=== PATIENT | male | born 1950 | race Caucasian/White ===

== ENCOUNTER → 2017-07-31 | Outpatient (REF) ==
[~2017-07-31] MED LIST: NORCO 325 MG-51 TAB PO; PRINIVIL10 MG PO; TENORETIC 50 501 TAB PO; ZYLOPRIM 100MG100 MG PO
== END ==
LOC: ZLAB.WCH 15:06
DX: Z01.89 Encounter for other specified special examinations (principal)

== ENCOUNTER → 2018-04-25 | Outpatient (CLI) | payer MEDICARE, OTHER ==
[~2018-04-25] MED LIST changes: +ASPIRIN E.C. 8181 MG PO; +BETAPACE 80MG80 MG PO; +ELIQUIS 5MG PO; +EYE DROP TEARS15 ML OP; +NORVASC 10MG10 MG PO; +ZESTRIL40 MG PO
== END ==
LOC: COL.PUL 10:50
DX: I48.91 Unspecified atrial fibrillation (principal); Z87.891 Personal history of nicotine dependence

== ENCOUNTER → 2018-05-02 | Outpatient (REF) | LOC: ZLAB.WCH 18:09 | DX: Z01.89 Encounter for other specified special examinations (principal) ==

== ENCOUNTER → 2018-07-07 | Outpatient (CLI) | payer MEDICARE, OTHER ==
[~2018-07-07] VITALS: Ht 180.3 cm; Wt 90.0 kg
[~2018-07-07] MED LIST changes: +MASON NATURAL1200 MG PO
[2018-07-07 10:32] VITALS: BP 139/90; PULSE 58
[2018-07-07 12:07] VITALS: BP 119/71; PULSE 74
[2018-07-07 12:08] VITALS: BP 120/70; PULSE 81
[2018-07-07 12:09] VITALS: BP 124/81; PULSE 80
== END ==
LOC: COL.CARD 10:17
DX: R06.02 Shortness of breath (principal); I48.3 Typical atrial flutter; I50.32 Chronic diastolic (congestive) heart failure; G45.2 Multiple and bilateral precerebral artery syndromes
CPT/HCPCS: A9502; J2785

== ENCOUNTER 2020-02-28 14:58 | Emergency (ER) | payer MEDICARE, OTHER ==
[~2020-02-28] VITALS: Ht 177.8 cm; Wt 79.5 kg
[2020-02-28 15:05] VITALS: TEMP 98.1
[2020-02-28] MEDS ORDERED: CEPHALEXIN500 M1 PO (16:32)
[2020-02-28 16:50] VITALS: BP 165/73; PULSE 76
== END 2020-02-28 16:46 | disposition home or self-care (01) ==
LOC: COL.ER 14:58
DX: S02.2XXA Fracture of nasal bones, initial encounter for closed fracture (principal); S01.111A Laceration without foreign body of right eyelid and periocular area, initial encounter; I10 Essential (primary) hypertension; I48.91 Unspecified atrial fibrillation; Z79.01 Long term (current) use of anticoagulants; W10.9XXA Fall (on) (from) unspecified stairs and steps, initial encounter; Y92.009 Unspecified place in unspecified non-institutional (private) residence as the place of occurrence of the external cause

== ENCOUNTER 2020-09-14 02:52 | Emergency (ER) | payer MEDICARE, OTHER ==
[~2020-09-14] VITALS: Ht 177.8 cm; Wt 79.5 kg
[~2020-09-14 02:52] MED LIST changes: +CEPHALEXIN500 M1 PO
[2020-09-14 03:16] LABS: BASO # 0.1 (0.0-0.2); BASO % 0.8 % (0.0-2.0); EOS # 0.2 (0.0-0.7); EOS % 2.8 % (0-4.0); GRAN % 52.6 % (42.2-75.2); HEMOGLOBIN 10.5 g/dl (13.5-18.0); LYMPH # 2.6 (1.2-3.4); LYMPH % 34.1 % (20.0-51.0); MEAN CELL VOLUME 98 fl (80.0-100.0); MEAN CORPUSCULAR HEMOGLOBIN 34 pg (27.0-31.0); MEAN CORPUSCULAR HGB CONC 34 g/dl (33.0-37.0); MONO # 0.7 (0.1-0.6); MONO % 9.3 % (1.7-9.3); PLATELET COUNT 164 K/mm3 (130-400); RED BLOOD COUNT 3.13 M/mm3 (4.20-5.60); REDCELL DISTRIBUTION WIDTH-CV 14.4 % (11.5-14.5)
[2020-09-14 03:17] LABS: HEMATOCRIT 30.7 % (42.0-52.0)
[2020-09-14 03:47] LABS: ALANINE AMINOTRANSFERASE 29 U/L (4-49); ALBUMIN 4.1 gm/dL (3.5-5.0); ALKALINE PHOSPHATASE 87 U/L (50-136); ANION GAP 11 mmol/L (7-16); AST,SGOT 37 U/L (15-37); BILIRUBIN,TOTAL 1.1 mg/dL (0.0-1.0); BLOOD UREA NITROGEN 22 mg/dL (9-20); CARBON DIOXIDE 25 mmol/L (22-30); CHLORIDE 99 mmol/L (98-107); CREATININE, serum 1.04 (0.66-1.25); GLUCOSE 119 mg/dL (74-106); POTASSIUM 3.9 mmol/L (3.4-5.0); SODIUM 135 mmol/L (137-145); TOTAL PROTEIN 6.6 gm/dL (6.4-8.2)
[2020-09-14 04:01] LABS: TROPONIN-I 3 HR POST INITIAL < 0.012 ng/mL (0.000-0.034)
[2020-09-14 07:42] LABS: COLLECTION METHOD CLEAN CATCH
[2020-09-14 07:52] LABS: PH 6 (5-8); SQUAMOUS EPITHELIAL None Seen /hpf; URINE APPEARANCE Hazy; URINE BACTERIA None Seen /hpf; URINE BILIRUBIN Negative (NEGATIVE); URINE BLOOD Negative (NEGATIVE); URINE COLOR Yellow; URINE GLUCOSE Negative (NEGATIVE); URINE KETONE 1+ (NEGATIVE); URINE LEUKOCYTE ESTERASE Negative (NEGATIVE); URINE NITRATE Negative (NEGATIVE); URINE PROTEIN(semi-quant) Negative (NEGATIVE); URINE UROBILINOGEN Negative (NEGATIVE)
[2020-09-14 10:29] VITALS: BP 170/90; PULSE 85
--- NOTE | 2020-09-14 13:30 | NUR ---
Quarry Worker responded to consult in the ED for patient, who fell in his bathroom earlier this morning. Patient's neighbor called in a welfare check and patient was brought in via EMS. Patient does not have a ride home and is insistent on leaving. SW met with patient who confirmed his address and phone number. Patient sees Dr. Quiles in [place] for primary care. Patient states he still drives to appointments but also mentions during conversation that he does not drive on the highway. SW asked how patient gets to [place] if he doesn't drive on highways and patient states "oh that one's not that bad". SW asked patient if he has considered changing providers to [place] and he states he has talked with his family about this as one of his nieces, Sola Medeiros works for [employer], per patient. Patient does not have Advance Directives. Patient is not and has two children, Yumiko (ph#[phone]) and Tamela (ph#[phone]). Yumiko lives in [facility] and Tamela lives in [place], [place]. Patient states he is independent with ADLS and has no problems at home. Patient was observed by ELDA walking in the halls with staff, with no use of DME. Patient states he does have a cane and walker at home. Patient states he cooks for himself and is on the keto diet. Patient states he does okay with cleaning but that his apartment "needs a good clean" right now. Patient declines having SW set up meals on wheels. Patient reports he shops for groceries independently at [facility]. Patient states he has a neighbor, Caroline who is a good support for him and will occasionally help with cleaning. Right now, Caroline is in [place] visiting family so she cannot come get patient. 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 Patient is anxious to return home and requests a cab. ELDA left the room to contact patient's daughter, Yumiko who had no idea patient fell or was in the ED. Yumiko states she will leave for [place] immediately to pickling solution maker patient. ELDA returned to patient's room with Yumiko on speaker phone. Yumiko advised patient she would come get him and also offered to have patient stay with her for a short time. Patient declines both offers and states "he won't hear it". Patient refuses to wait for Yumiko to pick him up and repeatedly states he needs a cab or he will walk home. Yumiko left the call after this to head to [place]. ELDA collaborated with Dr. Garcia, ED Physician and KOBY Moore. Patient is medically cleared for discharged and cannot be held here if he wants to go. ELDA contacted [employer] and arranged for a ride home for patient. After this, ELDA contacted Yumiko to follow up. Yumiko verbalized understanding and advised patient can be stubborn. Yumiko states she is on her way to [place] now. Yumiko advised patient called her just a few minutes ago and requested she meet him at a coffee shop instead of his apartment. Yumiko expressed concern for her father and is not sure how best to help him as he will not allow she or her sister to provide any assistance. Yumiko advised both she and Tamela have offered to have patient live with them but he adamantly declines. Yumiko reports they have also tried to talk with him about changing his primary care physician to one in [place] but he is resistant to this. Yumiko also expressed concern about patient drinking alcohol with his medications, specifically Ambien. ELDA offered support and also discussed resources like a medical alert button for home. ELDA advised Yumiko that she provided a brochure for a local company that can set up the medical alert system for patient at home. Yumiko states if she can't find it in the discharge paperwork, she will call ELDA back for contact information as she is driving. Yumiko is hopeful her father will agree to this. ELDA encouraged Yumiko to call with any questions or concerns. ELDA contacted the ED physician to provide update that patient drinks alcohol with his medications and ED physician advised he suspected this. ELDA contacted Ivis WHALEN with Dr. Quiles and left a message. ELDA then made a report to Adult Protective Services (intake #[id number]).
== END 2020-09-14 09:24 | disposition home or self-care (01) ==
LOC: COL.ER 02:52
PROVIDERS: Emergency Medicine
DX: S00.03XA Contusion of scalp, initial encounter (principal); I48.91 Unspecified atrial fibrillation; I48.92 Unspecified atrial flutter; Z87.891 Personal history of nicotine dependence; Z79.01 Long term (current) use of anticoagulants; W19.XXXA Unspecified fall, initial encounter

== ENCOUNTER 2020-12-21 16:14 | Inpatient (IN) | payer MEDICARE, OTHER ==
[~2020-12-21] VITALS: Ht 177.8 cm; Wt 76.9 kg
[2020-12-25] MEDS ORDERED: AMBIEN 10MG10 MG PO (06:03)
[2020-12-25] MEDS ORDERED: MAGNESIUM200 MG PO (07:42)
[2020-12-25] MEDS ORDERED: K-DUR 10 MEQ T10 MEQ PO (07:42)
[2020-12-25] MEDS ORDERED: PHARMASSURE ZIN50 MG PO (07:43)
[2020-12-25] MEDS ORDERED: VITAMIN D 400400 IU PO (07:43)
[2020-12-31] MEDS ORDERED: FERROUS SU325 MG/TAB PO (07:30)
[2020-12-31] MEDS ORDERED: VITAMIN C500 MG PO (07:31)
[2020-12-31] MEDS ORDERED: OSCAL 500 TAB500 MG PO (07:31)
[2020-12-31] MEDS ORDERED: SENOKOT S 50 MG1 TAB PO (07:32)
[2020-12-31] MEDS ORDERED: DUO-KAPS1 CAP PO (07:32)
[2020-12-31] MEDS ORDERED: DULCOLAX S10 MG/SUPP RC (07:32)
[2020-12-31] MEDS ORDERED: TYLENOL 325MG325 MG PO (07:33)
[2020-12-31] MEDS ORDERED: NORCO 325 MG-51 TAB PO (07:34)
[2021-08-21] VITALS (10 sets, daily range): BP systolic 105–157; BP diastolic 63–107; PULSE 54–80; TEMP 97.7–98
--- NOTE | 2021-08-21 14:05 | NUR ---
Patient resting in bed, eating lunch & tolerating well. Vitals stable on room air. Right hip occlusive dressing intact. Cms intact to Right leg. Spinal still working on left leg, able to minimall move toes. Teds & scds ble. Ivf per orders. Will monitor.
--- NOTE | 2021-08-21 17:48 | NUR ---
Patient sitting up in bed, ordering dinner. Vitals remains stable. Spinal is about worn off now. Pain managed well with Ultram this afternoon. He does report it made his head feel a little fuzzy. Overall patient doing well. Will monitor.
[2021-08-22] VITALS (8 sets, daily range): BP systolic 93–121; BP diastolic 51–99; PULSE 58–73; TEMP 97.8–99.4
--- NOTE | 2021-08-22 01:35 | NUR ---
PT APPEARS TO BE SLEEPING @ THIS TIME. RESPIRATIONS UNLABORED. PERIPHERAL IV WAS SALINE LOCKED @ 2029. PT IS TOLERATING PO INTAKE WELL. SCDs ON. CALL LIGHT WITHIN REACH.
--- NOTE | 2021-08-22 06:21 | NUR ---
PT RESTING QUIETLY IN BED. STATES THAT HIS PAIN IS NOT TOO BAD THIS MORNING. FRESH ICE PACK APPLIED TO RIGHT HIP, DRESSING CDI. REQUESTS COFFEE TO DRINK. DENIES OTHER NEEDS @ THIS TIME. RESPIRATIONS UNLABORED, CALL LIGHT WITHIN REACH.
[2021-08-22 06:42] LABS: HEMATOCRIT 38.1 % (42.0-52.0)
--- NOTE | 2021-08-22 09:00 | NUR ---
PT SITTING UP IN BED WORKING ON COMPUTER. DRESSING TO RIGHT HIP CDI. PT IS EATING AND DRINKING WITH NO N/V. PAIN WELL CONTROLLED WITH PO MEDS AT THIS TIME. IV TO INT THIS AM. PT VOIDING WELL.
--- NOTE | 2021-08-22 17:00 | NUR ---
Neurology Physician met with patient to discuss discharge planning. Patient lives alone in [place] in an apartment with multiple steps. Patient sees Dr. Ekaterina Quiles for primary care [facility] Patient has a walker at home and reports he is normally independent with ADLS. Patient does not have DPOA-HC and was not interested in designating anyone at this time. Patient is not and his two daughters, Tamela (ph#[phone]) and Yumiko (ph#[phone]) are his legal next of kin. SW discussed benefits of post acute rehab with patient as well as PT/OT recommendations. Patient is open to rehab and his preferences are [facility]) [facility] and 2) [facility]. SW contacted [facility] and gave referrals. SW also updated Will Morales about plan for rehab. Discharge Plan: Referrals to [facility]
--- NOTE | 2021-08-22 20:00 | NUR ---
PATIENT IS ALERT AND ORIENTED X4. PATIENT HAS AQUACELL TO RIGHT HIP. CDI. PATIENT SITTING IN CHAIR NOW. PATIENT HAS IV TO LEFT HAND. PATIENT HAS SCD'S AND AUREA HOSE ON BILATERAL LOWER EXTREMITIES. PATIENT IS ON GENERAL DIET. PAIN MEDS GIVEN PER ORDERS. ICE PROVIDED TO RIGHT HIP. PATIENT DENIES FURTHER NEEDS AT THIS TIME. CALL LIGHT WITHIN REACH. HEAD TO TOE ASSESSMENT COMPLETE.
--- NOTE | 2021-08-22 21:00 | NUR ---
PATIENT WAS ABLE TO WALK DOWN BANEGAS WITH BUTTON PUSHER. PATIENT HAD STEADY GAIT. PATIENT ALSO GIVEN TOOTHBRUSH AND TOOTHPASTE. PATIETN TO BED AFTER WALK.
[2021-08-23 03:28] VITALS: BP 96/57; PULSE 66; TEMP 98.1
--- NOTE | 2021-08-23 05:56 | NUR ---
PATIENT DID WELL THROUGHOUT THE NIGHT. SLEPT MOST OF NIGHT. PATIENT WALKED. PATIENT DENIES PAIN AT THIS TIME. WILL REPORT TO DAYSHIFT.
[2021-08-23 07:39] VITALS: BP 95/54; PULSE 70; TEMP 98
--- NOTE | 2021-08-23 08:25 | NUR ---
Patient doing well this am. He is alert & oriented. Pain manged with tylenol at this time. Right hip aquacell dressing intact. Teds & scds.
--- NOTE | 2021-08-23 09:45 | NUR ---
Patient repositioned in bed & provided with hygiene & oral care. Hospitalist rounded. I asked that the family be notified, especially patient to be at bedside. Patient nearing , breathing having sereve apnea. Will monitor
[2021-08-23 12:39] VITALS: BP 123/74; PULSE 102; TEMP 98.2
[2021-08-23] MEDS ORDERED: CELEBREX 200MG200 MG PO (13:49)
[2021-08-23] MEDS ORDERED: ROXICODONE 55 MG/TAB PO (13:49)
[2021-08-23] MEDS ORDERED: ULTRAM 50MG TAB50 MG PO (13:50)
[2021-08-23] MEDS ORDERED: SENOKOT S 50 MG1 TAB PO (13:50)
[2021-08-23 14:13] VITALS: BP 123/74; PULSE 102; TEMP 98.2
--- NOTE | 2021-08-23 15:00 | NUR ---
Patient ready for discharge. patient to [facility] with transportation. Report called to nurse at [facility]. Patient dressed with Ot. Int Dc. he did well with lunch & tyelnol manages pain.
--- NOTE | 2021-08-23 16:00 | NUR ---
Artificial Flowers Supervisor contacted Clarice at [facility] and advised that patient is ready for discharge today if they can accept. Clarice advised after review that they can accept patient today under the COVID waiver. ELDA met with patient who is agreeable for discharge today. ELDA set transport time for 1430. ELDA contacted [facility] Director and advised [facility]. ELDA faxed discharge orders to Clarice at [facility]. Discharge Plan: [facility]
== END 2021-08-23 15:03 | DRG 470 ==
LOC: SURG 01-17 07:30 → INPTSU 08-21 07:00 → SURG 08-21 07:00
PROVIDERS: ADMIT Orthopaedic Surgery
PROC: 0SR904Z Replacement of Right Hip Joint with Ceramic on Polyethylene Synthetic Substitute, Open Approach (ICD-10-PCS; principal; 2021-08-21 10:30)
DX: M16.11 Unilateral primary osteoarthritis, right hip (principal); I10 Essential (primary) hypertension; M10.9 Gout, unspecified; Z20.822 Contact with and (suspected) exposure to COVID-19; Z96.651 Presence of right artificial knee joint; Z86.718 Personal history of other venous thrombosis and embolism; Z86.73 Personal history of transient ischemic attack (TIA), and cerebral infarction without residual deficits; Z86.711 Personal history of pulmonary embolism; Z23 Encounter for immunization
CPT/HCPCS: A4314; A9284; C1713; C1776; J0690; J2704; J3010; J7030; J7120

== ENCOUNTER 2020-12-25 04:21 | Inpatient (IN) | payer MEDICARE, OTHER ==
[~2020-12-25] VITALS: Ht 177.8 cm; Wt 79.0 kg
[2020-12-25] VITALS (7 sets, daily range): BP systolic 77–153; BP diastolic 50–95; PULSE 64–88; TEMP 97.6–98.8
[2020-12-25 04:45] LABS: BASO # 0.1 (0.0-0.2); BASO % 0.6 % (0.0-2.0); EOS # 0.3 (0.0-0.7); EOS % 3.1 % (0-4.0); GRAN # 6.7 (1.4-6.5); GRAN % 70.9 % (42.2-75.2); HEMATOCRIT 42.2 % (42.0-52.0); HEMOGLOBIN 13.1 g/dl (13.5-18.0); LYMPH # 1.8 (1.2-3.4); LYMPH % 19.3 % (20.0-51.0); MEAN CELL VOLUME 86 fl (80.0-100.0); MEAN CORPUSCULAR HEMOGLOBIN 27 pg (27.0-31.0); MEAN CORPUSCULAR HGB CONC 31 g/dl (33.0-37.0); MEAN PLATELET VOLUME 8.6 fl (7.4-10.4); MONO # 0.5 (0.1-0.6); MONO % 5.7 % (1.7-9.3); PLATELET COUNT 216 K/mm3 (130-400); RED BLOOD COUNT 4.89 M/mm3 (4.20-5.60); REDCELL DISTRIBUTION WIDTH-CV 21.1 % (11.5-14.5)
[2020-12-25 04:53] LABS: INR 1.1 (0.8-3.0); PROTHROMBIN TIME 12.7 SECONDS (9.7-12.8)
[2020-12-25 04:58] LABS: ALBUMIN 4.4 gm/dL (3.5-5.0); CALCIUM 8.6 mg/dL (8.4-10.2); CREATININE, serum 0.89 (0.66-1.25); POTASSIUM 4.7 mmol/L (3.4-5.0); TOTAL PROTEIN 7.7 gm/dL (6.4-8.2)
[2020-12-25 05:09] LABS: TROPONIN-I 0.02 ng/mL (0.000-0.035)
[2020-12-25] MEDS ORDERED: AMBIEN 10MG10 MG PO (06:03)
[2020-12-25 06:07] LABS: COLLECTION METHOD CLEAN CATCH
[2020-12-25 06:15] LABS: PH 5 (5-8); SQUAMOUS EPITHELIAL None Seen /hpf; URINE APPEARANCE Clear; URINE BACTERIA None Seen /hpf; URINE BILIRUBIN Negative (NEGATIVE); URINE BLOOD 1+ (NEGATIVE); URINE COLOR Yellow; URINE GLUCOSE Negative (NEGATIVE); URINE KETONE Trace (NEGATIVE); URINE LEUKOCYTE ESTERASE Negative (NEGATIVE); URINE NITRATE Negative (NEGATIVE); URINE PROTEIN(semi-quant) 1+ (NEGATIVE); URINE UROBILINOGEN Negative (NEGATIVE)
[2020-12-25 06:24] LABS: TRICYCLIC ANTIDEPRESS URINE NEGATIVE
--- NOTE | 2020-12-25 07:37 | NUR ---
Patient arrived to room 346 from ER. Patient irritated, complaints of pain. Brace to Rle. Cms intact. Ortho rounded. Patient hypotensive. notified. IVF started per order & labs stat entered. no pain medication ordered at this time due to low BP. Patient took off C collar himself, I instructed him there were no orders to take off. Ortho was not willing to clear him from wearing. Will closely monitor
[2020-12-25] MEDS ORDERED: K-DUR 10 MEQ T10 MEQ PO (07:42)
[2020-12-25] MEDS ORDERED: MAGNESIUM200 MG PO (07:42)
[2020-12-25] MEDS ORDERED: VITAMIN D 400400 IU PO (07:43)
[2020-12-25] MEDS ORDERED: PHARMASSURE ZIN50 MG PO (07:43)
[2020-12-25 08:04] LABS: BASO # 0.1 (0.0-0.2); BASO % 0.5 % (0.0-2.0); EOS # 0.1 (0.0-0.7); EOS % 0.9 % (0-4.0); GRAN # 9.3 (1.4-6.5); GRAN % 77.3 % (42.2-75.2); HEMATOCRIT 37.2 % (42.0-52.0); HEMOGLOBIN 11.6 g/dl (13.5-18.0); LYMPH # 1.7 (1.2-3.4); LYMPH % 13.9 % (20.0-51.0); MEAN CELL VOLUME 84 fl (80.0-100.0); MEAN CORPUSCULAR HEMOGLOBIN 26 pg (27.0-31.0); MEAN CORPUSCULAR HGB CONC 31 g/dl (33.0-37.0); MEAN PLATELET VOLUME 8.3 fl (7.4-10.4); MONO # 0.8 (0.1-0.6); MONO % 6.7 % (1.7-9.3); PLATELET COUNT 213 K/mm3 (130-400); RED BLOOD COUNT 4.41 M/mm3 (4.20-5.60); REDCELL DISTRIBUTION WIDTH-CV 20.9 % (11.5-14.5)
--- NOTE | 2020-12-25 09:32 | NUR ---
TELE ON. Patient BP imporved. Hospitalist aware. Patient okay to have heart healthy diet, no plans for surgery today.
--- NOTE | 2020-12-25 10:30 | NUR ---
Nigel is ready to take pain medication. Rumely orders obtained & given. Patient follows a strict diet, yogurt with pain medication. Lunch ordered. Teds & scds. Patient refused ice pack, reports being too cold. Nigel reports being up to date on vaccines. He resfued tetnus shot that was suppose to be given in ER. Pharmacy made aware
--- NOTE | 2020-12-25 11:30 | NUR ---
SW met with patient to complete intake. Patient states that he lives in [place], [place] alone. Contact is daughter Tamela [phone]. Patient provides that his PCP is Dr. Quiles, pharmacy is [facility], and is able to afford his medications. Patient provides that he does not utilize any DME and is independent with ADL's. Patient provides that he does not wish to appoint anyone at this time as DPOA-HC, and plans to return to his home in [place] upon discharge and has no concerns with doing so. SW will continue to follow.
--- NOTE | 2020-12-25 13:00 | NUR ---
Hospitalist rounded. Orders obtained.
[2020-12-25 13:59] LABS: HEMOGLOBIN 10.9 g/dl (13.5-18.0)
--- NOTE | 2020-12-25 18:12 | NUR ---
Patient being medicated with pain per orders, He is tolerating diet. Ivf per orders. Garcia to DD with adequate output. Brace on right leg. Cms intact. Scds ble & brandt to left leg
--- NOTE | 2020-12-25 19:39 | NUR ---
Patient requesting pain medication. One tab norco per request. His friend at bedside. She brought in his belongings. Bedside report to Malou KOBY
--- NOTE | 2020-12-25 22:00 | NUR ---
PT IN BED WATCHING TV. HAS IVF INFUSING TO LEFT FOREARM WITHOUT PROBLEM. HAS RT LEG IMMOBILIZER ON, ABLE TO MOVE RT FOOT WITHOUT DIFFICULTY. NOTED SWELLING OF RIGHT KNEE, REFUSES ICE PACK. RATES PAIN 6/10, MORPHINE 1MG IVP GIVEN WELL HS MEDS. IS ALERT AND ORIENTED. PAGE TO BSD WITH YELLOW URINE NOTED. WILL MONITOR FOR CHANGES.
[2020-12-26] VITALS (7 sets, daily range): BP systolic 127–169; BP diastolic 72–86; PULSE 62–81; TEMP 97.7–99.1
--- NOTE | 2020-12-26 00:08 | NUR ---
RATES PAIN 8/10 TO RIGHT LEG, NORCO 5/325 1 TAB PO NOW. REPORTS MORPHINE HELPED "MINIMALLY".
--- NOTE | 2020-12-26 02:44 | NUR ---
Pt reporting throbbing of right leg. Medicated with Morphine 1mg IVP at this time. Discussed pain regimen with Gisele Pagan, new orders placed.
--- NOTE | 2020-12-26 04:02 | NUR ---
MEDICATED WITH NORCO 5/325MG AT THIS TIME FOR THROBBING TO RIGHT LEG.
--- NOTE | 2020-12-26 05:50 | NUR ---
Medicated with Morphine 2mg IVP for pain to right leg.
[2020-12-26 06:25] LABS: BASO % 0.5 % (0.0-2.0); EOS # 0.3 (0.0-0.7); EOS % 4.3 % (0-4.0); GRAN # 3.3 (1.4-6.5); GRAN % 54.4 % (42.2-75.2); LYMPH # 1.8 (1.2-3.4); LYMPH % 28.8 % (20.0-51.0); MEAN CELL VOLUME 84 fl (80.0-100.0); MEAN CORPUSCULAR HGB CONC 33 g/dl (33.0-37.0); MEAN PLATELET VOLUME 8.7 fl (7.4-10.4); MONO # 0.7 (0.1-0.6); MONO % 11.7 % (1.7-9.3); PLATELET COUNT 171 K/mm3 (130-400); RED BLOOD COUNT 3.64 M/mm3 (4.20-5.60); REDCELL DISTRIBUTION WIDTH-CV 20.7 % (11.5-14.5)
[2020-12-26 06:35] LABS: HEMATOCRIT 30.5 % (42.0-52.0); HEMOGLOBIN 9.9 g/dl (13.5-18.0); MEAN CORPUSCULAR HEMOGLOBIN 27 pg (27.0-31.0)
[2020-12-26 06:36] LABS: CALCIUM 8.4 mg/dL (8.4-10.2); CREATININE, serum 1.02 (0.66-1.25); POTASSIUM 3.9 mmol/L (3.4-5.0)
--- NOTE | 2020-12-26 08:20 | NUR ---
Patient echo completed this am. Ortho rounded this am. Plans for surgery tmrw. Patient cleared by hospitalist to eat today. breakfafst ordered. He continues to have pain especially with movement. Pain pill per orders. Right leg immobilizer intact. Rle elevated on pillow. epic ambulatory analysts intact. IVf per orders. Will monitor.
--- NOTE | 2020-12-26 10:22 | NUR ---
Initial visit; Managing Director Atlas introduced herself and inquired if patient would like prayer or if he would like Managing Director Atlas to keep him in her prayers. Patient declined prayer.
--- NOTE | 2020-12-26 12:38 | NUR ---
Patient repositioned in bed. Provided with bed bath, ann cares. Independent with oral cares. [place] for pain after repositioning. Bo hose back on his Left leg. Scds Ble. Ice pack to Right knee. Very swollen. Immobilizer on & readjusted. Lunch ordered.
--- NOTE | 2020-12-26 15:18 | NUR ---
Channeling Machine Operator met with patient to review discharge plan. SW advised patient that he may need post acute rehab after surgery and patient states he is agreeable to this as he lives in a second story apartment. SW reviewed options with patient including local SNFs and IPR. Patient does not feel he could tolerate three hours of therapy daily. Patient's first preference is [facility] and second preference is [facility]. SW contacted both facilities and faxed referrals. SW contacted patient's daughter, Yumiko (ph#[phone]) to provide update. Yumiko is agreeable to rehab placement and also feels patient may benefit from moving into an Assisted Living facility at some point. Yumiko reports patient sometimes delays sharing with her and her sister Tamela that he has fallen. SW will continue to follow.
--- NOTE | 2020-12-26 17:02 | NUR ---
Patient continues to talk on the phone alot. Pain medications per orders. Made him aware of plan to have surgery on 12/28/20 4042
--- NOTE | 2020-12-26 18:59 | NUR ---
Bedside report to Malou. Patient having concerns about having a BM, instructed him on a bedpan that we can use when he is ready
--- NOTE | 2020-12-26 20:19 | NUR ---
Pt given HS meds including [place] and Morphine for throbbing to right knee. Rt leg in an immobilizer, abrasions x3 noted with edema present. Pt is alert and oriented x4. Has SL to left forearm, flushes well. Other abrasions and bruising present to rt forehead and rt arm. Has ann to BSD with yellow urine. Wants to have a BM, afraid to use the bedpan at this time.
--- NOTE | 2020-12-26 23:14 | NUR ---
Medicated with Benadryl 25mg po for sleep and Morphine 2mg po for pain.
--- NOTE | 2020-12-27 00:05 | NUR ---
MEDICATED WITH NORCO 5/325MG PO FOR RT LEG PAIN.
[2020-12-27 04:03] VITALS: BP 122/73; PULSE 75; TEMP 98.7
--- NOTE | 2020-12-27 04:07 | NUR ---
MEDICATED WITH NORCO 5/325MG 1 PO AND MORPHINE 2MG IVP FOR PAIN/THROBBING TO RIGHT LEG.
[2020-12-27 07:37] LABS: BASO # 0.1 (0.0-0.2); BASO % 0.9 % (0.0-2.0); CALCIUM 8.7 mg/dL (8.4-10.2); CREATININE, serum 1.01 (0.66-1.25); EOS # 0.2 (0.0-0.7); EOS % 3.5 % (0-4.0); GRAN % 59.9 % (42.2-75.2); LYMPH # 1.8 (1.2-3.4); LYMPH % 26.8 % (20.0-51.0); MEAN CELL VOLUME 84 fl (80.0-100.0); MEAN CORPUSCULAR HGB CONC 32 g/dl (33.0-37.0); MEAN PLATELET VOLUME 8.9 fl (7.4-10.4); MONO # 0.6 (0.1-0.6); MONO % 8.6 % (1.7-9.3); PLATELET COUNT 178 K/mm3 (130-400); POTASSIUM 3.6 mmol/L (3.4-5.0); RED BLOOD COUNT 3.41 M/mm3 (4.20-5.60); REDCELL DISTRIBUTION WIDTH-CV 20.8 % (11.5-14.5)
[2020-12-27 07:38] LABS: HEMATOCRIT 28.7 % (42.0-52.0); HEMOGLOBIN 9.3 g/dl (13.5-18.0); MEAN CORPUSCULAR HEMOGLOBIN 27 pg (27.0-31.0)
[2020-12-27 07:39] VITALS: BP 119/67; PULSE 74; TEMP 98.4
--- NOTE | 2020-12-27 09:55 | NUR ---
Patient alert and oriented, answers questions appropriately. See assessment. RLE with immobilizer in place. Pulses palpable to RLE, no numbness or tingling. Garcia catheter in place to dependent drainage, draining clear yellow urine. No c/o at this time.
[2020-12-27 12:00] VITALS: BP 125/72; PULSE 80; TEMP 98.3
[2020-12-27 12:02] LABS: IRON,SERUM 34 ug/dL (35-150)
[2020-12-27 12:11] LABS: TOTAL IRON BINDING CAPACITY 351 ug/dL (261-462)
[2020-12-27 17:00] VITALS: BP 119/66; PULSE 76; TEMP 97.9
--- NOTE | 2020-12-27 20:15 | NUR ---
Patient requested something else to help him sleep. Orders for melatonin from IVANNA Jaquez. Patient would like to try taking melatonin and benadryl together.
[2020-12-27 21:26] VITALS: BP 114/57; PULSE 80; TEMP 98.3
[2020-12-27 22:36] LABS: FOLATE (FOLIC ACID) 14.7 ng/mL (7.0-31.4)
[2020-12-28] VITALS (12 sets, daily range): BP systolic 84–137; BP diastolic 50–78; PULSE 61–90; TEMP 97.3–99.7
--- NOTE | 2020-12-28 05:24 | NUR ---
Wallace called and said that patient is in a fib. Called IVANNA Jaquez, and notified her.
--- NOTE | 2020-12-28 06:47 | NUR ---
Patient to surgery with surgical staff at 0635.
[2020-12-28 07:37] LABS: HEMOGLOBIN 10.2 g/dl (13.5-18.0); MEAN CELL VOLUME 85 fl (80.0-100.0); MEAN CORPUSCULAR HEMOGLOBIN 27 pg (27.0-31.0); MEAN CORPUSCULAR HGB CONC 32 g/dl (33.0-37.0); MEAN PLATELET VOLUME 9.1 fl (7.4-10.4); PLATELET COUNT 189 K/mm3 (130-400); RED BLOOD COUNT 3.76 M/mm3 (4.20-5.60)
[2020-12-28 07:51] LABS: CALCIUM 9.1 mg/dL (8.4-10.2); CREATININE, serum 0.97 (0.66-1.25); POTASSIUM 3.4 mmol/L (3.4-5.0)
[2020-12-28 07:59] LABS: HEMATOCRIT 31.8 % (42.0-52.0)
[2020-12-28 11:18] LABS: HEMATOCRIT 28.5 % (42.0-52.0); HEMOGLOBIN 8.7 g/dl (13.5-18.0)
--- NOTE | 2020-12-28 14:23 | NUR ---
Patient had surgery today. ELDA faxed clinical updates to [facility]. ELDA also gave referral to [facility]. ELDA will continue to follow.
--- NOTE | 2020-12-28 19:18 | NUR ---
Patient returned from surgery at 1200 today. See assessment. RLE with DIA and technol brace in place, reports numbness and tingling to RLE, able to wiggle toes. NWB/TDWB to RLE. Post op exercises and weight bearing status reviewed with patient. Patient requests pain meds to be given routinely, reviewed with prn pain medications and indications. Patient endorses no pain or sensation to RLE, did have block post surgery, pulses palpable. No c/o at this time.
--- NOTE | 2020-12-28 22:20 | NUR ---
HS MEDS INCLUDING NORCO 5/325MG 2 TABS AND BENADRYL AND MELATONIN GIVEN. PT WANTS TO GET UP TO BSC FOR BM. HAS RT LEG IMMOBILIZER ON. LEFT FOREARM SL. ABRASIONS TO RT FOREHEAD, RT KNEE AND RT ARM HEALING. PAGE TO BSD WITH YELLOW URINE.
--- NOTE | 2020-12-28 23:15 | NUR ---
UP TO BSC FOR BM. TRANSFERS WITH 2 ASSIST/GAIT BELT/WALKER WITH ONLY TTWB TO RIGHT LEG. HAS BRACE ON. HAS LARGE SOFT BM AND ASSISTED BACK TO BED.
[2020-12-29] VITALS (7 sets, daily range): BP systolic 99–115; BP diastolic 55–71; PULSE 71–89; TEMP 97.4–98.5
--- NOTE | 2020-12-29 04:00 | NUR ---
PT DENIES NEED FOR PAIN MEDS, RATES PAIN 1/10 TO RT KNEE.
[2020-12-29 06:48] LABS: MEAN CELL VOLUME 87 fl (80.0-100.0); MEAN CORPUSCULAR HGB CONC 31 g/dl (33.0-37.0); MEAN PLATELET VOLUME 9.6 fl (7.4-10.4); PLATELET COUNT 196 K/mm3 (130-400); RED BLOOD COUNT 2.81 M/mm3 (4.20-5.60); REDCELL DISTRIBUTION WIDTH-CV 20.9 % (11.5-14.5)
[2020-12-29 06:52] LABS: HEMATOCRIT 24.4 % (42.0-52.0); HEMOGLOBIN 7.6 g/dl (13.5-18.0); MEAN CORPUSCULAR HEMOGLOBIN 27 pg (27.0-31.0)
[2020-12-29 06:59] LABS: CALCIUM 8.7 mg/dL (8.4-10.2); CREATININE, serum 1.02 (0.66-1.25); POTASSIUM 4.2 mmol/L (3.4-5.0)
--- NOTE | 2020-12-29 07:38 | NUR ---
Pt alert and oriented for assessment this AM. No complaints of pain or discomfort. Education provided on the use of IS and ankle pumps to increase blood flow and oxygenation.
--- NOTE | 2020-12-29 14:28 | NUR ---
Sales Product Manager faxed clinical updates to [facility], [facility], and [facility]. SW contacted Clarice at [facility] who advised they can accept patient at discharge. Clarice states she met with patient and let him know they will have a bed for him. SW notified the two other facilities that first preference accepted. ELDA also contacted patient's daughter, Yumiko to advise that [facility] can accept.
[2020-12-29 16:20] LABS: HEMOGLOBIN 7.3 g/dl (13.5-18.0)
--- NOTE | 2020-12-29 18:43 | NUR ---
Nigel has done well throughout the day. Patient up to recliener for all meals. Garcia catheter discontinued today by RN student at approximately 1200, patient voiding without difficulties. Medications given per orders for RLE pain. Denies further needs at this time. Will report off to squaring machine operator.
--- NOTE | 2020-12-29 21:30 | NUR ---
PT RESTING IN BED, AWAKENED FOR HS MEDS. DENIES NEED FOR PAIN MEDS AT THIS TIME. RT LEG IN IMMOBILIZER. VOIDING PER URINAL. WANTS SLEEPING PILL AT 2230.
--- NOTE | 2020-12-29 22:31 | NUR ---
MEDICATED WITH AMBIEN FOR SLEEP.
[2020-12-30] VITALS (11 sets, daily range): BP systolic 104–133; BP diastolic 54–71; PULSE 68–84; TEMP 98–99
--- NOTE | 2020-12-30 06:00 | NUR ---
HAS NO COMPLAINTS OF PAIN NEEDING PAIN MEDS.
[2020-12-30 06:51] LABS: MEAN CELL VOLUME 88 fl (80.0-100.0); MEAN CORPUSCULAR HGB CONC 31 g/dl (33.0-37.0); MEAN PLATELET VOLUME 9.3 fl (7.4-10.4); PLATELET COUNT 189 K/mm3 (130-400); REDCELL DISTRIBUTION WIDTH-CV 21.9 % (11.5-14.5)
[2020-12-30 06:59] LABS: CALCIUM 8.4 mg/dL (8.4-10.2); CREATININE, serum 1.06 (0.66-1.25); POTASSIUM 3.4 mmol/L (3.4-5.0)
[2020-12-30 07:02] LABS: HEMATOCRIT 21.2 % (42.0-52.0); HEMOGLOBIN 6.5 g/dl (13.5-18.0); MEAN CORPUSCULAR HEMOGLOBIN 27 pg (27.0-31.0)
--- NOTE | 2020-12-30 07:21 | NUR ---
Attempted to call Dr. Arce RE HGB of 6.5. Unable to leave [facility].
--- NOTE | 2020-12-30 11:46 | NUR ---
Care Connector attended clinical rounds with the team and patient will not discharge today, but possibly could discharge over the weekend. SW contacted Clarice at [facility] and faxed clinical updates. ELDA advised Clarice patient will not discharge today but could over the weekend. ELDA contacted patient's daughter, Yumiko and left a message. ELDA will continue to follow.
--- NOTE | 2020-12-30 11:46 | NUR ---
Patient to CT.
--- NOTE | 2020-12-30 12:04 | NUR ---
Patient back from CT.
[2020-12-30 17:08] LABS: HEMOGLOBIN 7.5 g/dl (13.5-18.0)
--- NOTE | 2020-12-30 18:48 | NUR ---
Patient doing well through the day. Transfused 1 unit PRBC per orders. Patient up to BSC with SBA. Immobilized maintained to RLE. Dressing changed by RN student this AM. Patient denies pain throughout the day, did take one dose of pain medication early this AM prior to therapy. Patient denies further needs at this time. Will report off to artificial plastic eye maker.
--- NOTE | 2020-12-30 19:59 | NUR ---
called to notify RN that patient heart rythum pauses, and to check out patient, Gaby WHALEN states Ok
--- NOTE | 2020-12-30 20:00 | NUR ---
Report received, assumed care for operation shift supervisor. lead cytogenetic technologist called reporting SR with intermittent pauses with quick recovery. VS 116/58, HR 68, RR 18 and Oxygen sat of 98% on RA. Denies chest pain, shortness of air, palpitations, nausea or lightheadedness. States he finally fell asleep about 30 minutes ago and was in a deep sleep. Voiding without difficulty. +flatus. Dressing to right knee-aquacell/scott-CDI. Immobolizer on. SCDs/TEDs. Plan of care discussed for this shift to include HS meds/pain control/calling for questions/concerns. Verbalizes understanding. Denies needs. Call light in reach. Will monitor.
--- NOTE | 2020-12-30 21:15 | NUR ---
of patient called upset stating that [facility] did not have the patient pain medication. States DR Schultz stated the prescriptions were sent to them. States she called earlier in the shift and spoke to Aaron, Charge nurse who stated Dr Schultz would re order the medications at the correct pharmacy. Also states that they returned to [facility] and they will not fill the prescription because it is already filled at a pharmacy in [place] and waiting pickler helper. states that pharmacy is currently closed. Dr Schultz Notified of situation and new orders received to fill a take home pack of 4 norco and have patient come back to hospital for pickler helper. Done at this time. Aaron, full charge bookkeeper nurse verified orders and confirmed pickler helper with nurse.
[2020-12-30 22:14] LABS: HEMATOCRIT 24.3 % (42.0-52.0); HEMOGLOBIN 7.6 g/dl (13.5-18.0)
--- NOTE | 2020-12-30 22:44 | NUR ---
Called with c/o pain to right knee. Rating pain 5/10 on pain scale-described as constant ache with intermittent throbbing. Joshua one tab given per order. Will continue to monitor.
--- NOTE | 2020-12-31 01:03 | NUR ---
Resting eyes closed. No s/s of pain noted. Call light in reach. Will monitor.
[2020-12-31 04:15] VITALS: BP 101/58; PULSE 70; TEMP 98
--- NOTE | 2020-12-31 05:03 | NUR ---
Awake in room playing games on cell phone. States he slept really hard early in shift and has been up wide awake last hour. Denies pain/nausea/shortness of breath. VS remained stable. Call light in reach. Will monitor.
[2020-12-31 06:33] LABS: BASO % 0.5 % (0.0-2.0); EOS # 0.2 (0.0-0.7); EOS % 2.4 % (0-4.0); GRAN # 5.4 (1.4-6.5); GRAN % 67.1 % (42.2-75.2); LYMPH # 1.7 (1.2-3.4); LYMPH % 20.8 % (20.0-51.0); MEAN CELL VOLUME 90 fl (80.0-100.0); MEAN CORPUSCULAR HGB CONC 30 g/dl (33.0-37.0); MEAN PLATELET VOLUME 9.1 fl (7.4-10.4); MONO # 0.7 (0.1-0.6); MONO % 8.7 % (1.7-9.3); PLATELET COUNT 208 K/mm3 (130-400); RED BLOOD COUNT 2.91 M/mm3 (4.20-5.60); REDCELL DISTRIBUTION WIDTH-CV 20.9 % (11.5-14.5)
[2020-12-31 06:34] LABS: HEMATOCRIT 26.2 % (42.0-52.0); HEMOGLOBIN 7.8 g/dl (13.5-18.0); MEAN CORPUSCULAR HEMOGLOBIN 27 pg (27.0-31.0)
[2020-12-31 07:10] LABS: CALCIUM 8.6 mg/dL (8.4-10.2); CREATININE, serum 0.92 (0.66-1.25); POTASSIUM 3.7 mmol/L (3.4-5.0)
[2020-12-31 07:19] VITALS: BP 107/69; PULSE 79; TEMP 98.7
[2020-12-31] MEDS ORDERED: FERROUS SU325 MG/TAB PO (07:30)
[2020-12-31] MEDS ORDERED: OSCAL 500 TAB500 MG PO (07:31)
[2020-12-31] MEDS ORDERED: VITAMIN C500 MG PO (07:31)
[2020-12-31] MEDS ORDERED: DUO-KAPS1 CAP PO (07:32)
[2020-12-31] MEDS ORDERED: DULCOLAX S10 MG/SUPP RC (07:32)
[2020-12-31] MEDS ORDERED: SENOKOT S 50 MG1 TAB PO (07:32)
[2020-12-31] MEDS ORDERED: TYLENOL 325MG325 MG PO (07:33)
[2020-12-31] MEDS ORDERED: NORCO 325 MG-51 TAB PO (07:34)
--- NOTE | 2020-12-31 08:00 | NUR ---
Patient in bed resting. Alert and oriented x 3. Assessment complete. Immobilizer to RLE, mckenna x2 are CDI. Tele in place. States mild pain , states he would like to stay away from narcotic pain medication and requested tylenol. Pedal pulses intact. Denies further needs at this time.
[2020-12-31 09:14] VITALS: BP 107/69; PULSE 79; TEMP 98.7
[2020-12-31 11:33] VITALS: BP 117/66; PULSE 68; TEMP 98.1
--- NOTE | 2020-12-31 11:47 | NUR ---
Patient will discharge today 12/31 to [facility]. ELDA faxed discharge records to [facility] and coordinated with agency for care and transport upon discharge. Patient will be picked up around 1200. ELDA contacted daughter Yumiko (P$ [phone]) to notify of discharge. There are no new needs at this time.
--- NOTE | 2020-12-31 12:10 | NUR ---
Patient out by wheelchair to [facility]ana, report called to Joe WHALEN. INT discontinued, catheter tip intact.
== END 2020-12-31 12:10 | DRG 481 ==
LOC: COL.ER 04:21 → SURG 06:05
PROVIDERS: Emergency Medicine; Orthopaedic Surgery; Physician Assistant; Registered Nurse; ADMIT Student in an Organized Health Care Education/Training Program
PROC: 0QSB04Z Reposition Right Lower Femur with Internal Fixation Device, Open Approach (ICD-10-PCS; principal; 2020-12-28 07:30)
DX: S72.401A Unspecified fracture of lower end of right femur, initial encounter for closed fracture (principal); M97.11XA Periprosthetic fracture around internal prosthetic right knee joint, initial encounter; E87.1 Hypo-osmolality and hyponatremia; I48.91 Unspecified atrial fibrillation; D64.9 Anemia, unspecified; Z96.653 Presence of artificial knee joint, bilateral; Z79.01 Long term (current) use of anticoagulants; Z87.891 Personal history of nicotine dependence; Z20.822 Contact with and (suspected) exposure to COVID-19; W19.XXXA Unspecified fall, initial encounter; Z86.73 Personal history of transient ischemic attack (TIA), and cerebral infarction without residual deficits
CPT/HCPCS: 99222-AI; 99232-AI; 99233-AI; 99239; A4314; A9284; C1713; C1776; J0171; J0690; J2250; J2270; J2370; J2704; J2795; J3010; J7030; L1830; P9016

== ENCOUNTER → 2021-07-11 | Outpatient (CLI) | payer MEDICARE, OTHER ==
[~2021-07-11] MED LIST changes: +AMBIEN 10MG10 MG PO; +CELEBREX 200MG200 MG PO; +DULCOLAX S10 MG/SUPP RC; +DUO-KAPS1 CAP PO; +FERROUS SU325 MG/TAB PO; +K-DUR 10 MEQ T10 MEQ PO; +MAGNESIUM200 MG PO; +ONE-A-DAY ESSE1 EACH PO; +OSCAL 500 TAB500 MG PO; +PHARMASSURE ZIN50 MG PO; +ROXICODONE 55 MG/TAB PO; +SENOKOT S 50 MG1 TAB PO; +TYLENOL 325MG325 MG PO; +ULTRAM 50MG TAB50 MG PO; +VITAMIN C500 MG PO; +VITAMIN D 400400 IU PO
== END ==
LOC: MHCPAIN 08:54
DX: M47.816 Spondylosis without myelopathy or radiculopathy, lumbar region (principal); M54.5 Low back pain; M53.3 Sacrococcygeal disorders, not elsewhere classified; G89.29 Other chronic pain
CPT/HCPCS: G0463

== ENCOUNTER 2021-09-14 19:04 | Inpatient (IN) | payer MEDICARE, OTHER ==
[~2021-09-14] VITALS: Ht 177.8 cm; Wt 87.7 kg
[~2021-09-14 19:04] MED LIST changes: -ONE-A-DAY ESSE1 EACH PO
[2021-09-14 22:38] LABS: BASO % 0.3 % (0.0-2.0); EOS # 0.1 K/mm3 (0.0-0.7); EOS % 0.8 % (0-4.0); GRAN # 6.5 K/mm3 (1.4-6.5); GRAN % 72.1 % (42.2-75.2); HEMATOCRIT 41.3 % (42.0-52.0); LYMPH # 1.5 K/mm3 (1.2-3.4); LYMPH % 17.1 % (20.0-51.0); MEAN CELL VOLUME 99 fl (80.0-100.0); MEAN CORPUSCULAR HEMOGLOBIN 34 pg (27.0-31.0); MEAN CORPUSCULAR HGB CONC 34 g/dl (33.0-37.0); MEAN PLATELET VOLUME 8.3 fl (7.4-10.4); MONO # 0.9 K/mm3 (0.1-0.6); MONO % 9.4 % (1.7-9.3); PLATELET COUNT 181 K/mm3 (130-400); RED BLOOD COUNT 4.18 M/mm3 (4.20-5.60)
[2021-09-14 22:50] LABS: INR 1.5 (0.8-3.0); PROTHROMBIN TIME 16.5 SECONDS (9.7-12.8)
[2021-09-14 22:52] LABS: CALCIUM 9.3 mg/dL (8.4-10.2); CREATININE, serum 0.93 mg/dL (0.72-1.25); PARTIAL THROMBOPLASTIN TIME 37.2 SECONDS (26.0-37.0); POTASSIUM 3.8 mmol/L (3.5-4.5)
[2021-09-14] MEDS ORDERED: BETAPACE 80MG80 MG PO (23:36)
[2021-09-14] MEDS ORDERED: AMBIEN 10MG10 MG PO (23:36)
[2021-09-14] MEDS ORDERED: ONE-A-DAY ESSE1 EACH PO (23:37)
--- NOTE | 2021-09-14 23:58 | NUR ---
PT ARRIVES VIA CART FROM ED TO ROOM 346. IS ALERT AND ORIENTED X4. HAS SL TO RAC. HAS BILATERAL AUREA HOSE ON. PLACED ON FALL PRECAUTIONS. MOVED TO BED WITH 2 ASSIST.
--- NOTE | 2021-09-15 00:36 | NUR ---
PT GIVEN SNACK OF GRAHM CRACKERS AND MILK. TAKES AMBIEN AND NORCO AT THIS TIME. RATES PAIN TO RT LEG 4/10.
--- NOTE | 2021-09-15 01:36 | NUR ---
VOIDS PER URINAL 200CC. TAKES DOSE OF ORAL POTASSIUM AT THIS TIME.
[2021-09-15 03:50] VITALS: BP 128/79; PULSE 72; TEMP 97.9
--- NOTE | 2021-09-15 05:54 | NUR ---
PT AWAKE, DENIES NEED FOR PAIN MEDS AT THIS TIME.
--- NOTE | 2021-09-15 07:00 | NUR ---
MEDICATED WITH NORCO 1 TAB PO FOR PAIN TO RT LEG. VOIDS 350CC YELLOW URINE.
[2021-09-15 07:57] VITALS: BP 114/70; PULSE 73; TEMP 98.3
--- NOTE | 2021-09-15 09:10 | NUR ---
lithographic general worker met with patient to discuss discharge plan with patient. Patient reports that he was recently discharged from [facility] from a previous stay at this [facility] this month. Patient reports that he has been independent post SNF discharge with his activities of daily living and he recently stopped using a cane to assist with ambulation. PCP is and he utilizes [facility] for medications with no cost difficulty. Patient has no oxygen needs. Patient does not have a DPOA-HC and is not interested in establishing one at this time. Education provided to the patient and he states he would like to speak with his children about it before creating one. Patient reports that he has stairs at home and does not feel like he is able to go back home yet. Patient would like to go back to [facility] to keep working with therapy. Discharge plan: [facility]- pending ortho consult.
--- NOTE | 2021-09-15 11:55 | NUR ---
Patient alert and oriented, answers questions appropriately. See assessment. RLE with trace edema noted, pulses palpable. Sensation intact to LLE, no c/o numbness or tingling. AUREA hose in place to BLE. NWB to LLE. SCDs in place. No c/o at this time.
[2021-09-15 12:10] VITALS: BP 148/95; PULSE 71; TEMP 98
--- NOTE | 2021-09-15 12:24 | NUR ---
Attempt made to contact the patient's daughter Yumiko to inform her of transfer and was unsuccessful.Message left.Phone number listed for the patient's daughter Tamela not in service. Discharge plan: Patient transfering to [facility]
--- NOTE | 2021-09-15 12:59 | NUR ---
Patient transferred to [facility] via EMS at 1255. Report called to Lesly at [facility], paperwork sent.
--- NOTE | 2021-09-15 13:00 | NUR ---
Patient transferred to [facility] via EMS with IV in place to RAC, fluids infusing.
--- NOTE | 2021-09-15 13:08 | NUR ---
Patient's daughter Yumiko calls back. Gave Yumiko a brief update on her father and that we would be transferring him to [facility] in [place] and that he will need to have surgery again. Informed Yumiko that her father expressed a desire to go back to [facility].
== END 2021-09-15 12:55 | disposition short-term general hospital (02) | DRG 536 ==
LOC: COL.ER 19:04 → SURG 22:28
PROVIDERS: Emergency Medicine; ADMIT Internal Medicine
DX: S72.141A Displaced intertrochanteric fracture of right femur, initial encounter for closed fracture (principal); M97.01XA Periprosthetic fracture around internal prosthetic right hip joint, initial encounter; I07.1 Rheumatic tricuspid insufficiency; I27.20 Pulmonary hypertension, unspecified; I48.91 Unspecified atrial fibrillation; D64.9 Anemia, unspecified; E87.6 Hypokalemia; Z66 Do not resuscitate; Z20.822 Contact with and (suspected) exposure to COVID-19; Z79.01 Long term (current) use of anticoagulants; Z96.641 Presence of right artificial hip joint; Z86.73 Personal history of transient ischemic attack (TIA), and cerebral infarction without residual deficits; Z87.891 Personal history of nicotine dependence; W18.30XA Fall on same level, unspecified, initial encounter; Z91.81 History of falling; Y92.009 Unspecified place in unspecified non-institutional (private) residence as the place of occurrence of the external cause
CPT/HCPCS: 99223-AI; 99239; J2270

== ENCOUNTER → 2022-05-08 | Outpatient (CLI) | payer MEDICARE, OTHER ==
[~2022-05-08] MED LIST changes: +ONE-A-DAY ESSE1 EACH PO
== END ==
LOC: MHCPAIN 13:44
DX: M47.817 Spondylosis without myelopathy or radiculopathy, lumbosacral region (principal); M53.3 Sacrococcygeal disorders, not elsewhere classified; M54.50 Low back pain, unspecified
CPT/HCPCS: G0463

== ENCOUNTER → 2022-05-17 | Outpatient (CLI) | payer MEDICARE, OTHER | LOC: MHCPAIN 10:54 | DX: M47.817 Spondylosis without myelopathy or radiculopathy, lumbosacral region (principal); M54.50 Low back pain, unspecified; M53.3 Sacrococcygeal disorders, not elsewhere classified ==

== ENCOUNTER → 2022-05-22 | Outpatient (CLI) | payer MEDICARE, OTHER | LOC: MHCPAIN 12:58 | DX: M47.897 Other spondylosis, lumbosacral region (principal); M53.3 Sacrococcygeal disorders, not elsewhere classified; M54.50 Low back pain, unspecified | CPT/HCPCS: G0463 ==

== ENCOUNTER → 2022-05-24 | Outpatient (CLI) | payer MEDICARE, OTHER | LOC: MHCPAIN 12:55 | DX: M47.817 Spondylosis without myelopathy or radiculopathy, lumbosacral region (principal); M54.50 Low back pain, unspecified; M53.3 Sacrococcygeal disorders, not elsewhere classified ==

== ENCOUNTER 2023-01-19 06:10 | Emergency (ER) | payer MEDICARE, OTHER ==
[~2023-01-19] VITALS: Ht 177.8 cm; Wt 77.3 kg
[2023-01-19] MEDS ORDERED: SENOKOT S 50 MG1 TAB PO (08:14)
[2023-01-19] MEDS ORDERED: NORCO 325 MG-51 TAB PO (08:14)
[2023-01-19 08:42] VITALS: BP 145/104; PULSE 70; TEMP 97.4
== END 2023-01-19 08:45 | disposition home or self-care (01) ==
LOC: COL.ER 06:10
DX: M25.552 Pain in left hip (principal); I48.91 Unspecified atrial fibrillation; Z79.01 Long term (current) use of anticoagulants; Z79.899 Other long term (current) drug therapy; W18.30XA Fall on same level, unspecified, initial encounter

== ENCOUNTER → 2023-07-25 | Outpatient (CLI) | payer MEDICARE, OTHER ==
[~2023-07-25] MED LIST changes: +FOLIC ACID 11 MG/TA1 PO; +LIPITOR 40MG TA40 MG PO; +MULTI VITAMINS1 TAB PO; +PRINIVIL5 MG PO; +THIAMINE 1100 MG/TAB PO
== END ==
LOC: MHCPAIN 04-29 13:29
DX: M47.817 Spondylosis without myelopathy or radiculopathy, lumbosacral region (principal); M54.50 Low back pain, unspecified
CPT/HCPCS: J0665; J1100; J2250; J3010

== ENCOUNTER → 2023-10-24 | Outpatient (CLI) | payer MEDICARE, OTHER | LOC: MHCPAIN 14:48 | DX: M46.1 Sacroiliitis, not elsewhere classified (principal); M47.898 Other spondylosis, sacral and sacrococcygeal region; M54.50 Low back pain, unspecified | CPT/HCPCS: G0260; J0665; J1040; Q9967 ==

== ENCOUNTER → 2023-11-26 | Outpatient (CLI) | payer MEDICARE, OTHER | LOC: MHCPAIN 15:52 | DX: M47.816 Spondylosis without myelopathy or radiculopathy, lumbar region (principal); M54.50 Low back pain, unspecified; M53.3 Sacrococcygeal disorders, not elsewhere classified; I48.91 Unspecified atrial fibrillation; Z79.01 Long term (current) use of anticoagulants | CPT/HCPCS: G0463 ==

== ENCOUNTER 2024-05-13 21:00 | Emergency (ER) | payer MEDICARE, OTHER ==
[~2024-05-13] VITALS: Ht 177.8 cm; Wt 81.8 kg
[2024-05-13 21:03] VITALS: TEMP 97.9
[2024-05-13] MEDS ORDERED: niCARdipine 200 ML IV ONE (21:15)
[2024-05-13 21:18] LABS: BASO % 0.4 % (0.0-2.0); EOS # 0.1 K/mm3 (0.0-0.7); EOS % 2.5 % (0.0-4.0); GRAN # 3.7 K/mm3 (1.4-6.5); GRAN % 66.7 % (42.2-75.2); HEMATOCRIT 47.2 % (42.0-52.0); HEMOGLOBIN 16.1 g/dl (13.5-18.0); LYMPH # 1.3 K/mm3 (1.2-3.4); LYMPH % 23.2 % (20.0-51.0); MEAN CELL VOLUME 106 fl (80.0-100.0); MEAN CORPUSCULAR HEMOGLOBIN 36 pg (27-31); MEAN CORPUSCULAR HGB CONC 34 g/dl (33.0-37.0); MONO # 0.4 K/mm3 (0.1-0.6); PLATELET COUNT 138 K/mm3 (130-400); RED BLOOD COUNT 4.46 M/mm3 (4.20-5.60); REDCELL DISTRIBUTION WIDTH-CV 14.8 % (11.5-14.5)
[2024-05-13 21:31] LABS: ALANINE AMINOTRANSFERASE 8 U/L (0-55); ALKALINE PHOSPHATASE 94 U/L (40-150); ANION GAP 14 mmol/L (7-16); AST,SGOT 16 U/L (5-34); BILIRUBIN,TOTAL 2.5 mg/dL (0.2-1.2); BLOOD UREA NITROGEN 12 mg/dL (8-26); CALCIUM 9.2 mg/dL (8.4-10.2); CHLORIDE 106 mEq/L (98-107); CREATININE, serum 0.92 mg/dL (0.72-1.25); GLUCOSE 143 mg/dL (70-99); POTASSIUM 3.5 mEq/L (3.5-4.5); SODIUM 141 mEq/L (136-145); TOTAL PROTEIN 7.2 g/dl (6.2-8.1)
[2024-05-13 21:51] LABS: TSH w REFLEX 1.383 uIU/mL (0.350-4.940)
[2024-05-13 21:52] LABS: TROPONIN-I < 0.010 ng/mL (0.00-0.033)
[2024-05-13 21:59] LABS: COLLECTION METHOD CATHETER
[2024-05-13 22:10] LABS: PH 7.5 (5.0-8.5); URINE APPEARANCE CLEAR (CLEAR/HAZY); URINE BLOOD 3+ (NEGATIVE); URINE COLOR YELLOW (YELLOW); URINE GLUCOSE NEGATIVE (NEGATIVE); URINE KETONE NEGATIVE (NEGATIVE); URINE NITRATE NEGATIVE (NEGATIVE); URINE PROTEIN(semi-quant) 2+ (NEGATIVE)
[2024-05-13] MEDS ORDERED: Prothrombin Complex Human 2,000 UNITS in Water For Injection,Sterile 80 ML IV ONE (22:15)
[2024-05-13 22:19] LABS: INR 1.4 (0.8-3.0); PROTHROMBIN TIME 15.5 SECONDS (9.7-12.8)
[2024-05-13 23:30] VITALS: BP 132/91; PULSE 76
[2024-05-13] MEDS ORDERED: Ondansetron 4 MG/2 ML VIAL IV ONE (23:45)
== END 2024-05-14 | disposition short-term general hospital (02) ==
LOC: COL.ER 21:00
PROVIDERS: Family Medicine
DX: I62.9 Nontraumatic intracranial hemorrhage, unspecified (principal); I16.1 Hypertensive emergency; I48.91 Unspecified atrial fibrillation; R11.2 Nausea with vomiting, unspecified; Z79.01 Long term (current) use of anticoagulants
CPT/HCPCS: J0780; J2404; J2405; J7168